=== PATIENT | female | born 1985 | race African-American/Black ===

== ENCOUNTER 2021-09-05 11:43 | Emergency (ER) | payer OTHER ==
[2021-09-05 11:54] VITALS: BP 127/73
--- NOTE | 2021-09-05 12:21 | ED Physician Documentation ---
History of Present Illness - Stated complaint Stated Complaint: LEG PX BILAT - Chief complaint Chief Complaint: Ext Problem - Additonal information Additional information: 36-year-old female presents emergency department for evaluation of acute left posterior Achilles pain. Was playing basketball about 1 week ago felt a pulling and tear in her Achilles. She continued to play through it. Over the last week she has had increasing pain especially when ambulating. No falls or trauma. No history of similar in the past. Review of Systems Constitutional: denies: Fever, Chills Nose: reports: Reviewed and negative Throat: reports: Reviewed and negative Cardiac: reports: Reviewed and negative GI: reports: Reviewed and negative Musculoskeletal: reports: Joint pain Neurologic: reports: Reviewed and negative PD PAST MEDICAL HISTORY - Allergies Allergies/Adverse Reactions: Allergies Allergy/AdvReac Type Severity Reaction Status Date / Time No Known Drug Allergies Allergy Verified 09/05/21 11:54 PD ED PE EXPANDED - Extremities Extremities: Left ankle (Full range of motion. Intact Achilles at tendon though mildly tender. Normal inversion eversion of the foot. Normal dorsi and plantar flexion. 2+ DP pulse.) Results - Vitals Vitals: Vital Signs - 24 hr 09/05/21 11:49 Temperature 36.6 C Heart Rate 79 Respiratory 14 Rate Blood Pressure 127/73 O2 Saturation 100 Oxygen O2 Source Room air PD MEDICAL DECISION MAKING - ED course Complexity details: reviewed results, re-evaluated patient, considered differential, d/w patient ED course: 36-year-old female presents the emergency department for evaluation of 1 week left posterior Achilles pain. The Achilles itself is intact though painful. I suspect a partial tear. Deferred imaging as there is no suspicion for a fracture. Clinically she does not have a rupture. Patient was placed in equinus positioning With an Ashvin wrap. Given crutches. Advised follow-up with [facility]. Discussed routine care and emergent return precautions Departure - Departure Disposition: 01 Home, Self Care Clinical Impression: Achilles tendinitis Qualifiers: Laterality: left Qualified Code(s): M76.62 - Achilles tendinitis, left leg Condition: Stable Record reviewed to determine appropriate education?: Yes Instructions: Achilles Tendonitis Comments: You are seen today in the emergency department for pain in your left posterior Achilles. Clinically it appears that you have a partial tear. This is tendinitis. It is important to allow the Achilles to heal well before you start walking and having any impact activities with it. I am in general for the next week I recommend that you keep your foot in the equinus position as shown. Use the Ashvin wrap to help compress the tendon. Continue to take the ibuprofen. After a week you can gently start ranging the ankle and tendon. If it remains painful you likely need to be referred to physical therapy or orthopedics for longer-term evaluation and follow-up.
== END 2021-09-05 12:50 | disposition home or self-care (01) ==
LOC: ED 11:43
DX: M76.62 Achilles tendinitis, left leg (principal)
CPT/HCPCS: 99281; 99283

== ENCOUNTER 2022-05-06 12:36 | Outpatient (CLI) | payer OTHER | END 2022-05-06 12:37 | disposition home or self-care (01) | LOC: LAB 12:36 | PROVIDERS: ATTEND Nurse Practitioner | DX: O26.20 Pregnancy care for patient with recurrent pregnancy loss, unspecified trimester (principal) | CPT/HCPCS: 81241; 81599; 86038; 86147 ==

== ENCOUNTER 2022-07-03 20:43 | Outpatient (CLI) | payer OTHER ==
--- NOTE | 2022-07-04 10:10 | Ultrasound Report ---
PROCEDURE: Pelvic w/Transvaginal INDICATIONS: UTERINE FIBROIDS TECHNIQUE: Real-time scanning was performed of the pelvic organs, with image documentation. Additional endovagi nal scanning was necessary due to incomplete visualization of the adnexal and endometrial structures by transabdominal scanning. COMPARISON: None. FINDINGS: Uterus: Uterus is anteverted and enlarged in size at 9.3 x 5.3 x 7 cm. The myometrium is is heterog eneous. 1.5 x 1.3 x 1.4 cm submucosal fibroid in posterior myometrium is seen. 2.2 x 1.8 x 2.1 cm corrales bserosal fibroid in right lateral myometrium is noted. 1.1 x 1.1 x 1.2 cm intramural fibroid is seen in lateral right inferior myometrium. The endometrium measures 9.4 mm in combined thickness. No mirtha s endometrial mass or fluid. Ovaries: The right ovary measures 3.9 x 3.5 x 3.5 cm, with a calculated ovarian volume of 25.6 cc. The left ovary measures 3.6 x 1.2 x 2.9 cm, with a calculated ovarian volume of 6.5 cc. The ovaries have a normal sonographic appearance. Less than 12 follicles can be seen in each ovary. Dominant fol licle is seen in right ovary measures 1.7 x 1.5 x 1.8 cm in size. No adnexal masses are seen. Other: No pathologic free abdominal or pelvic fluid. IMPRESSION: 1. Enlarged uterus with heterogeneous myometrial echotexture and multiple uterine fibroids as describ ed above. No endometrial mass or fluid. 2. Bilateral ovarian follicles with dominant follicle seen in right ovary measures 1.7 x 1.5 x 1.8 cm in size. No solid-appearing ovarian lesion. No pelvic free fluid. Reviewed by: Nicanor Wright MD on 07/04/2022 10:09 AM PST Approved by: Nicanor Wright MD on 07/04/2022 10:09 AM PST Station ID: [id number]
== END 2022-07-03 20:44 | disposition home or self-care (01) ==
LOC: DI 20:43
PROVIDERS: ATTEND Nurse Practitioner
DX: D25.0 Submucous leiomyoma of uterus (principal); D25.2 Subserosal leiomyoma of uterus; D25.1 Intramural leiomyoma of uterus

== ENCOUNTER 2023-01-25 20:25 | Emergency (ER) | payer OTHER ==
[2023-01-25 20:47] VITALS: BP 140/90; O2SAT 97
[2023-01-25] MEDS ORDERED: DEXAMETHASONE 10 MG/ML VIAL IM STA (22:02)
[2023-01-25] MEDS ORDERED: ACETAMINOPHEN 325 MG TABLET PO STA (22:02)
[2023-01-25] MEDS ORDERED: methocarbamoL 500 MG TABLET PO STA (22:02)
[2023-01-25] MEDS ORDERED: LIDOCAINE PATCH 5% TOP STA (22:02)
[2023-01-25] MEDS ORDERED: KETOROLAC 30 MG/ML VIAL IVP STA (22:02)
--- NOTE | 2023-01-25 22:03 | ED Physician Documentation ---
PD HPI BACK PAIN - Stated complaint Stated Complaint: BACK PX - Chief complaint Chief Complaint: Back Pain - History obtained from History obtained from: Patient - Additional information Additional information: 37-year-old female with no significant past medical history presents for right- sided lumbar back pain that occurred this evening. Patient states that she has had some mild right-sided back pain for the last 3 days, however this evening she was bending over to take off her boots when she felt a popping sensation in her lower back and her pain worsened. No medications taken prior to arrival. Patient denies numbness, weakness, tingling of her lower extremities, denies bowel or bladder incontinence, denies saddle anesthesia. Review of Systems Constitutional: denies: Fever, Chills Cardiac: denies: Chest pain / pressure, Palpitations Respiratory: denies: Dyspnea, Cough : denies: Dysuria, Frequency, Hesitancy, Unable to Void Musculoskeletal: reports: Back pain. denies: Neck pain, Extremity pain, Joint pain, Extremity swelling, Joint swelling PD PAST MEDICAL HISTORY - Present Medications Home Medications: Ambulatory Orders Medication Instructions Recorded Confirmed Lidocaine Patch 5% [Lidoderm Patch] 1 each TOP DAILY #10 patch 01/25/23 Naproxen [Naprosyn] 250 mg PO Q8H #30 tablet 01/25/23 methocarbamoL [Robaxin] 500 mg PO Q6H #30 tablet 01/25/23 - Allergies Allergies/Adverse Reactions: Allergies Allergy/AdvReac Type Severity Reaction Status Date / Time No Known Drug Allergies Allergy Verified 01/25/23 20:37 PD ED PE NORMAL - Vitals Vital signs reviewed: Yes - General General: Alert and oriented X 3, Well developed/nourished, Other (uncomfortable, no acute distress) - Cardiac Cardiac: RRR - Respiratory Respiratory: No respiratory distress, Clear bilaterally - Abdomen Abdomen: Soft, Non tender, Non distended - Back Back: No CVA TTP, No spinal TTP, Other (R sided lumbar paraspinal muscle spasm. No midline tenderness) - Derm Derm: Normal color, Warm and dry, No rash - Extremities Extremities: No deformity, No tenderness to palpate, Normal ROM s pain, No edema - Neuro Neuro: Alert and oriented X 3, litigator 2-12 intact, No motor deficit, Normal speech - Psych Psych: Normal mood, Normal affect Results - Vitals Vitals: Vital Signs - 24 hr 01/25/23 20:38 Temperature 37.0 C Heart Rate 89 Respiratory 18 Rate Blood Pressure 140/90 H O2 Saturation 97 Oxygen O2 Source Room air PD Medical Decision Making - ED course Complexity details: re-evaluated patient, considered differential, d/w patient, d/w family ED course: Well-appearing patient with atraumatic paraspinal lumbar tenderness. Since the incident is atraumatic there is no indication for x-ray or CT imaging. No signs or symptoms of cauda equina. Patient counseled on back care tips and gentle stretching exercises that she may utilize at home for recovery and comfort. Patient was given multiple nonnarcotic medications in the emergency department and discharged with muscle relaxers, anti-inflammatories, lidocaine patch. Patient counseled to follow-up with primary care physician. ED return precautions discussed at bedside. Departure - Departure Disposition: 01 Home, Self Care Clinical Impression: Back pain Qualifiers: Back pain location: low back pain Chronicity: acute Back pain laterality: right Sciatica presence: without sciatica Qualified Code(s): M54.50 - Low back pain, unspecified Condition: Stable Instructions: ED Spasm Back No Trauma Prescriptions: Lidocaine Patch 5% [Lidoderm Patch] 1 each TOP DAILY #10 patch Naproxen [Naprosyn] 250 mg PO Q8H #30 tablet methocarbamoL [Robaxin] 500 mg PO Q6H #30 tablet Comments: Take the prescribed medications with Tylenol. Perform gentle stretching e xercises at home. You may also apply heating packs to relax the muscle. Follow-up with your primary care physician as needed. Discharge Date/Time: 01/25/23 23:16
== END 2023-01-25 23:16 | disposition home or self-care (01) ==
LOC: ED 20:25
DX: M54.50 Low back pain, unspecified (principal)
CPT/HCPCS: 96372; 96374; 99283; A9270

== ENCOUNTER 2023-10-05 10:59 | Outpatient (CLI) | payer OTHER ==
--- NOTE | 2023-10-05 11:44 | Sleep Patient Instructions ---
Sleep Center Visit Summary - Patient Visit Information Reason for Visit: Initial consult for evaluation of sleep disordered breathing and other sleep issues. - Patient Instructions Instructions Attached: Sleep Study Additional Instructions: You will be completing a sleep study, either an in-lab polysomnography (PSG) or home sleep study (HST). You will follow-up in the sleep care office after the sleep study is completed to hear the results and talk about therapy, if needed. You will be called by our office staff to schedule this appointment, but you may contact us with any questions. - Clinic Information Contact: [facility] [address] [place] [address] [email or web address] T: [phone]
--- NOTE | 2023-10-05 11:46 | SLEEP CARE CONSULTATION ---
Information from patient questionnaire entered by Arian Perez. I have reviewed and concur with the information entered by Arian Perez. This document represents the service I personally performed and the decisions made by me, Argelia Dempsey ARNP. History of Present Illness Service Date and Time: 10/05/2023 1059 Reason for Visit: New patient Chief Complaint: reports: Insomnia, Fatigue, Frequent awakenings at night Usual bedtime: CHANGES EVERY 2 WEEKS Snores at night: Yes (sometimes) Observed to quit breathing while asleep: Yes (not since having tonsillectomy) Sleeps alone due to snoring: No Number of times waking at night: 2-3 Reasons for waking at night: reports: Snoring, Bathroom. denies: Choking, Gas ping for air Toss, Turn, or Twitch while sleeping: Yes Recalls having dreams: Yes Usually gets out of bed at: DEPENDS ON WORK SCHEDULE Feels refreshed in the morning: No Morning headache: Yes (1-2 times a week; last until takes excedrin) Sleepy or fatigued during the day: Yes Ever fallen asleep while driving: No Takes day naps: No Dreams during day naps: No Prior sleep studies: No Additional HPI information: I had the pleasure of seeing BELLE JOHN today regarding the possibility of her having a sleep disorder. Her current complaints are fatigue, frequent night awakenings and insomnia. She says her sleep quality is poor. She has trouble falling asleep and takes trazadone to get to sleep. She says if she does not take the trazadone she cannot go to sleep. She says it relaxes her and she will take 45 minutes to 1 hour to fall asleep. She does not stay asleep the whole night. She wakes up feeling like she needs to "do something" or "about to be late". She had her tonsils removed in May because they would swell up and she would stop breathing. Since the tonsils have been removed she is no lo nger having issues with waking up gasping for air or choking. She says her work schedule changes every 2 weeks. She is working 12 hour shifts (6 AM to 6 PM, 6 PM to 6 AM) or "straights" (8 AM -4 PM), some weeks 3 days in a row, some 4 days in a row. - Parasomnia Symptoms Ever been unable to move upon waking from sleep: Yes (she says it only happens on her couch) Walks in sleep: No Talks in sleep: Yes (occasionally) Ever acted out dreams in sleep: No Ever felt weak in the knees when startled or emotional: No Bothered by creepy, crawly, restless sensations in legs: No Problems with memory or concentration: Yes (both) Subjective Initial Darling Sleepiness Scale score: 5 (10/05/23) Past Medical History Past Medical History: reports: Anxiety, Depression Social History The patient's occupation is a AM. Patient is and lives in [place]. Have you smoked in the past 12 months: No Alcohol use: Yes Alcohol amount and frequency: 1-2 GLASSES ONCE A MONTH OR LESS Caffeine use: Yes Caffeine amount and frequency: 16OZ 2-3 X WEEK Family History Family history of sleep disordered breathing: No (UNKNOWN) Family Hx Sleep Apnea: Mother: Snoring (she has ) Allergies and Home Medications Known drug allergies: No Drug allergies reviewed: Yes Home medication list reviewed: Yes (as listed) Allergy and home medication list: Allergies No Known Drug Allergies Allergy (Verified 09/30/23 11:53) Home Medications Medication Instructions Recorded Confirmed Last Taken Type Excedrin See Rx Instructions .ROUTE .COMPLEX 10/05/23 10/05/23 Unknown History Sertraline [Zoloft] See Rx Instructions .ROUTE .COMPLEX 10/05/23 10/05/23 Unknown History buPROPion [Wellbutrin Xl] See Rx Instructions .ROUTE .COMPLEX 10/05/23 10/05/23 Unknown History traZODone [Desyrel] See Rx Instructions .ROUTE .COMPLEX 10/05/23 10/05/23 Unknown History Review of Systems Weight gain over past 5 years: 40 Cardiovascular: denies: high blood pressure Gastrointestinal: denies: heartburn Urinary: reports: frequency Neurological: reports: headaches. denies: head trauma Psychiatric: reports: anxiety, depression Ear/Nose/Throat: reports: tonsillectomy, wisdom teeth removed. denies: injury to nose Endocrine: denies: thyroid disease Musculoskeletal: reports: back pain Physical Exam Vital signs obtained and entered by: ARIAN Peter MA Blood Pressure: 127/90 (LEFT ARM) Cuff size: regular Heart Rate: 100 O2 Saturation: 77 Height: 5 ft 8 in Weight: 202 lb Body Mass Index: 30.7 BMI Classification: Obese Neck circumference: 15 Mouth and throat: narrow oropharynx Soft palate: long Hard palate: normal Uvula: normal Uvula visualization: 50% Mallampati Class II Tongue: enlarged in size with teeth iniguez on lateral edges Tonsils: absent bilaterally (removed in May 2023) Neck: normal w/o lymphadenopathy or thyromegaly Heart: regular rate and rhythm Lungs: clear bilaterally Impression and Plan 1. Suspected Obstructive Sleep Apnea-Hypopnea Syndrome, as suggested by a history of irregular snoring, observed cessation of breath while asleep, gasping or choking in sleep, morning headache, frequent awakening during the night, unrefreshed sleep and cognitive impairment. Narrow oropharynx and obesity are common predisposing factors for obstructive sleep apnea-hypopnea syndrome. I recommend proceeding to polysomnography to confirm the diagnosis and to assess severity. If the patient has significant sleep disordered breathing, a manual CPAP titration study will also be performed to find the optimal treatment pressure. I informed the patient of what the sleep studies involve and after some discussion, obtained agreement to proceed. The pathophysiology of obstructive sleep apnea-hypopnea syndrome was discussed with the patient and health risks of cardiovascular and cerebrovascular disease if not treated. Risks of drowsy driving discussed in detail and patient advised to avoid long distance driving and to rib puller at the first sign of drowsiness. Patient agreed to plan. * Schedule polysomnography. * Avoid long distance driving or driving when feeling sleepy. * Avoid alcohol, sedative and muscle relaxant around bedtime. * Attempt to lose weight. * Review instructions provided by trained office staff on how to prepare for the sleep study. * Return for follow-up after sleep study completed. Counseling Topics: Weight loss health impact Plan: PSG and follow up Visit Type: In Office Time Spent with Patient (minutes): 31 Provider Statement: I spent 100% of the Face to Face Visit with the patient with greater than 50% spent counseling the patient and coordination of care.
[2023-10-05 11:55] VITALS: BP 127/90; O2SAT 77
== END 2023-10-05 11:00 | disposition home or self-care (01) ==
LOC: SC 10:59
PROVIDERS: ATTEND Nurse Practitioner Family
DX: R06.83 Snoring (principal); R06.81 Apnea, not elsewhere classified; G47.8 Other sleep disorders; R51.9 Headache, unspecified; R53.83 Other fatigue; E66.9 Obesity, unspecified; Z68.30 Body mass index [BMI] 30.0-30.9, adult
CPT/HCPCS: 99203; 99212

== ENCOUNTER 2023-11-11 17:34 | Emergency (ER) | payer OTHER ==
[2023-11-11 18:12] LABS: BASOPHILS % (AUTO) 0.3 %; EOSINOPHILS % (AUTO) 0.7 %; HCT - HEMATOCRIT 39.5 % (37.0-47.0); HGB - HEMOGLOBIN 12.8 g/dL (12.0-16.0); LYMPHOCYTES # (AUTO) 1.2 10^3/uL (1.5-3.5); LYMPHOCYTES % (AUTO) 39.5 %; MEAN CORPUSCULAR HEMOGLOBIN 28.9 pg (27.0-31.0); MEAN CORPUSCULAR HGB CONC 32.4 g/dL (32.0-36.0); MEAN CORPUSCULAR VOLUME 89.2 fL (81.0-99.0); MEAN PLATELET VOLUME 10.6 fL (7.9-10.8); MONOCYTES # (AUTO) 0.4 10^3/uL (0.0-1.0); MONOCYTES % (AUTO) 12.5 %; NEUTROPHILS # (AUTO) 1.4 10^3/uL (1.5-6.6); PLT - PLATELET COUNT 205 10^3/uL (130-450); RED BLOOD COUNT 4.43 10^6/uL (4.20-5.40); RED CELL DISTRIBUTION WIDTH 12.3 % (12.0-15.0)
[2023-11-11 18:26] LABS: ALBUMIN 4.2 g/dL (3.2-5.5); ALBUMIN/GLOBULIN RATIO 1.4 (1.0-2.2); ALKALINE PHOSPHATASE 43 IU/L (42-121); ALT ALANINE AMINOTRANSFERASE 8 IU/L (10-60); AST ASPARTATE AMINOTRANSFERASE 14 IU/L (10-42); BILIRUBIN,TOTAL 0.3 mg/dL (0.2-1.0); BUN - BLOOD UREA NITROGEN 9 mg/dL (6-20); CALCIUM 9.4 mg/dL (8.5-10.3); CARBON DIOXIDE - CO2 25 mmol/L (21-32); CHLORIDE 105 mmol/L (101-111); CREATININE 1.1 mg/dL (0.6-1.3); GFR - MDRD 67 (>89); GLUCOSE 87 mg/dL (74-104); LIPASE 12 U/L (11-82); POTASSIUM 3.9 mmol/L (3.5-4.5); SODIUM 136 mmol/L (135-145); TOTAL PROTEIN 7.1 g/dL (6.4-8.9)
[2023-11-11 18:31] LABS: TROPONIN I HIGH SENSITIVITY < 2.3 ng/L (2.3-14.8)
--- NOTE | 2023-11-11 18:31 | XRAY Report ---
PROCEDURE: Chest 1V INDICATIONS: Chest pain TECHNIQUE: One view of the chest was acquired. COMPARISON: None. FINDINGS: Surgical changes and devices: None. Lungs and pleura: No pleural effusions or pneumothorax. Lungs are clear. Mediastinum: Mediastinal contours appear normal. Heart size is normal. Bones and chest wall: No suspicious bony lesions. Overlying soft tissues appear unremarkable. IMPRESSION: No acute cardiopulmonary process. Reviewed by: José Shetty MD on 11/11/2023 6:29 PM PDT Approved by: José Shetty MD on 11/11/2023 6:29 PM PDT Station ID: [id number]
--- NOTE | 2023-11-11 18:42 | ED Physician Documentation ---
PD HPI CHEST PAIN - Stated complaint Stated Complaint: CHEST PX - Chief complaint Chief Complaint: Cardiac - History obtained from History obtained from: Patient - Additional information Additional information: She was picking up a heavy case of water about 4:00 and developed sharp substernal chest pain that lasted about 20 minutes. It was worse if she took a deep breath but she was not short of breath. It is now completely gone. There is no radiation to the pain. She denies pedal edema, calf pain, , recent travel, control use. She does have a family history of folks with early onset coronary disease. She has no other risk factors such as smoking, high cholesterol, or hypertension or diabetes. PD PAST MEDICAL HISTORY - Past Medical History Past Medical History: No - Past Surgical History Past Surgical History: No HEENT: Tonsil/Adenoidectomy - Present Medications Home Medications: Ambulatory Orders Medication Instructions Recorded Confirmed traZODone [Desyrel] 100 mg PO HS 10/05/23 11/11/23 metFORMIN [Glucophage] 500 mg PO HS 11/11/23 11/11/23 - Allergies Allergies/Adverse Reactions: Allergies Allergy/AdvReac Type Severity Reaction Status Date / Time No Known Drug Allergies Allergy Verified 11/11/23 17:44 - Social History Does the pt smoke?: No Smoking Status: Never smoker Does the pt drink ETOH?: No Does the pt have substance abuse?: No - Immunizations Immunizations are current?: Yes - POLST Patient has POLST: No PD ED PE NORMAL - Vitals Vital signs reviewed: Yes - General General: Alert and oriented X 3, No acute distress - Neck Neck: Supple, no meningeal sign, No bony TTP, No adenopathy - Cardiac Cardiac: RRR, No murmur - Respiratory Respiratory: No respiratory distress, Clear bilaterally - Abdomen Abdomen: Non tender - Extremities Extremities: No edema, No calf tenderness / cord - Neuro Neuro: Alert and oriented X 3, Normal speech Results - Vitals Vitals: Vital Signs - 24 hr 11/11/23 17:40 Temperature 36.9 C Heart Rate 77 Respiratory 16 Rate Blood Pressure 139/69 H O2 Saturation 97 Oxygen O2 Source Room air - EKG (time done) 1748 EKG releavant findings:: EKG personally interpreted by author of this note. Relevant findings are: Rate: Rate (enter#) (78) Rhythm: NSR [place]: Normal Intervals: Normal [place] QRS: Normal Ischemia: Normal ST segments - Labs Labs: Laboratory Tests 11/11/23 11/11/23 18:07 18:07 WBC 3.0 L RBC 4.43 Hgb 12.8 Hct 39.5 MCV 89.2 MCH 28.9 MCHC 32.4 RDW 12.3 Plt Count 205 MPV 10.6 Neut # (Auto) 1.4 L Lymph # (Auto) 1.2 L [place] # (Auto) 0.4 Eos # (Auto) 0.0 Baso # (Auto) 0.0 Absolute Nucleated RBC 0.00 Nucleated RBC % 0.0 Sodium 136 Potassium 3.9 Chloride 105 Carbon Dioxide 25 Anion Gap 6.0 BUN 9 Creatinine 1.1 Estimated GFR (MDRD) 67 L Glucose 87 Calcium 9.4 Total Bilirubin 0.3 AST 14 ALT 8 L Alkaline Phosphatase 43 Troponin I High Sens < 2.3 L Total Protein 7.1 Albumin 4.2 Globulin 2.9 Albumin/Globulin Ratio 1.4 Lipase 12 - Rads (name of study) Single view chest x-ray is unremarkable. Relevant Findings:: Final report received, EMP independent interpretation of test PD Medical Decision Making - ED course ED course: Heart score 1 for family history only. She is pain-free now with nonischemic EKG and negative troponin testing. Advised to return if pain recurs. Otherwise CBC showing mild nonspecific lymphopenia, CMP unremarkable. Departure - Departure Disposition: 01 Home, Self Care Clinical Impression: Chest pain Qualifiers: Chest pain type: unspecified Qualified Code(s): R07.9 - Chest pain, unspecified Condition: Good Record reviewed to determine appropriate education?: Yes Instructions: ED Chest Pain NonCardiac Comments: All indications would suggest today that the pain was not from a serious cause including your heart. That said I would like you to return if the pain returns. Follow-up with your flight surgeon, next available appointment for recheck regardless.
[2023-11-11 19:38] VITALS: BP 136/81; O2SAT 99
== END 2023-11-11 19:33 | disposition home or self-care (01) ==
LOC: ED 17:34
DX: R07.9 Chest pain, unspecified (principal); Z82.49 Family history of ischemic heart disease and other diseases of the circulatory system
CPT/HCPCS: 36415; 80053; 83690; 84484; 85025; 93005; 99283; 99284

== ENCOUNTER 2023-11-15 20:37 | Outpatient (CLI) | payer OTHER | END 2023-11-15 20:38 | disposition home or self-care (01) | LOC: SC 20:37 | PROVIDERS: ATTEND Nurse Practitioner Family | DX: R06.83 Snoring (principal); G47.8 Other sleep disorders; R06.81 Apnea, not elsewhere classified; R51.9 Headache, unspecified; R53.83 Other fatigue; F32.A Depression, unspecified; E66.9 Obesity, unspecified; Z68.30 Body mass index [BMI] 30.0-30.9, adult | CPT/HCPCS: 95810 ==

== ENCOUNTER 2023-12-17 14:49 | Outpatient (CLI) | payer OTHER ==
--- NOTE | 2023-12-17 15:18 | Sleep Patient Instructions ---
Sleep Center Visit Summary - Patient Visit Information Reason for Visit: Sleep study follow-up - Patient Instructions Additional Instructions: Your sleep study today was negative for significant sleep disordered breathing. Follow-up as needed. - Clinic Information Contact: [facility] [address] [place] [id number] [email or web address] T: [phone]
--- NOTE | 2023-12-17 15:24 | SLEEP CARE CONSULTATION ---
Information from patient questionnaire entered by Hilaria Perez. I have reviewed and concur with the information entered by Hilaria Perez. This document represents the service I personally performed and the decisions made by , Argelia Dempsey ARNP. History of Present Illness Service Date and Time: 12/17/2023 1449 Initial [place] Sleepiness Scale score: 5 (10/05/23) Current [place] Sleepiness Scale score: 6 (12/17/23) Additional HPI information: BELLE JOHN returns for follow up and results of the recently performed polysomnography on 11/15/2023. The patient was informed of the following findings: No significant sleep disor dered breathing with an average AHI of 0.0 and beatrice oxygen saturation of 93%. I explained the pathophysiology behind obstructive sleep apnea. Patient does not have sleep apnea and was advised how weight gain could increase the risk of developing sleep apnea in the future. I strongly encouraged the patient to lose weight. Patient was cautioned about risks of drowsy driving until sleepiness symptoms resolve. Sleep Study - Results Type of Sleep Study: Polysomnography (COMPLETED 11/15/23) Prior sleep studies: No Polysomnography/Home Sleep Study results: IMPRESSION: The quality of the study is good. The patient had normal sleep efficiency. The sleep architecture was relatively normal considering the first-night effect. Respiratory monitoring showed no significant sleep disordered breathing (AHI = 0.0) or hypoxia (beatrice oxygen saturation of 93%). The patient slept mostly supine. No audible snore. There was no significant periodic leg movement of sleep. Cardiac rhythm was normal sinus rhythm without significant arrhythmia. No abnormal behavior (parasomnia) observed during the night. Allergies and Home Medications Known drug allergies: No Drug allergies reviewed: Yes Home medication list reviewed: Yes (no changes) Allergy and home medication list: Allergies No Known Drug Allergies Allergy (Verified 12/17/23 14:51) Review of Systems Review of systems same as previous: Yes (NO CHANGE) Physical Exam Vital signs obtained and entered by: HILARIA Peter MA Blood Pressure: 141/81 (LEFT ARM) Cuff size: regular Heart Rate: 81 O2 Saturation: 100 Height: 5 ft 8 in Weight: 204 lb Body Mass Index: 31.0 BMI Classification: Obese Impression and Plan 1. Fatigue, unspecified. Patient returns for results of her sleep study which showed no significant sleep disordered breathing. She continues to be tired and cannot go to sleep without using her trazodone. She says she sleeps really well during the day and this has been the way she has been since she was younger. She just does not sleep well when she has to sleep during the evening but the trazodone does help her to go to sleep. I advised her to continue with trazodone use as needed to help her to be able to get adequate sleep and follow-up with her primary provider for further evaluation as needed. 2. Obesity, unspecified. Currently patients BMI is 31. Obesity increases the risk of apnea, CPAP pressure requirements and overall health risks especially cardiovascular and diabetes. Thus patient is advised to lose weight. * Attempt to lose weight * Avoid alcohol consumption near bedtime * The patient is cautioned about driving until sleepiness is completely resolved. * Return as needed for follow up. Counseling Topics: Weight loss health impact Follow up with Sleep Care in: as needed Visit Type: In Office Time Spent with Patient (minutes): 17 Provider Statement: I spent 100% of the Face to Face Visit with the patient with greater than 50% spent counseling the patient and coordination of care.
[2023-12-17 15:36] VITALS: BP 141/81; O2SAT 100
== END 2023-12-17 14:50 | disposition home or self-care (01) ==
LOC: SC 14:49
PROVIDERS: ATTEND Nurse Practitioner Family
DX: R53.83 Other fatigue (principal); E66.9 Obesity, unspecified; Z68.31 Body mass index [BMI] 31.0-31.9, adult
CPT/HCPCS: 99212

== ENCOUNTER 2024-01-26 18:19 | Outpatient (CLI) | payer OTHER ==
--- NOTE | 2024-01-27 16:23 | Ultrasound Report ---
PROCEDURE: Pelvic w/Transvaginal INDICATIONS: UTERINE FIBROIDS, PELVIC PAIN TECHNIQUE: Transabdominal/transvaginal ultrasound of the pelvis was obtained. Endovaginal scanning wa s necessary due to incomplete visualization of the adnexal and endometrial structures by transabdomin al scanning. COMPARISON: 07/03/2022 FINDINGS: Uterine size: Uterus measures 8.6 x 4.6 x 6.5 cm, and is anteverted. Myometrium: The myometrium is heterogenous midline posterior submucosal fibroid 1.9 x 1.7 x 1.8 cm it. The right lateral subserosal fibroid 2.5 x 2.4 x 2.3 cm. Right lateral inferior intramural fibroi d 1.2 x 1.2 x 1.0 cm Endometrium: The endometrium measures 6.1 mm in combined thickness. Both ovaries appropriate in size, echotexture and vascularity Other: No pathologic free abdominal or pelvic fluid. IMPRESSION: Multiple uterine fibroids, slightly larger than the prior exam Reviewed by: Jabier Tejada MD on 01/27/2024 3:22 PM AAKASH Approved by: Jabier Tejada MD on 01/27/2024 3:22 PM AAKASH Station ID: [id number]
== END 2024-01-26 18:20 | disposition home or self-care (01) ==
LOC: DI 18:19
PROVIDERS: ATTEND Nurse Practitioner
DX: D25.0 Submucous leiomyoma of uterus (principal); D25.1 Intramural leiomyoma of uterus; D25.2 Subserosal leiomyoma of uterus